=== PATIENT | male | born 1975 | race African-American/Black ===

== ENCOUNTER 2020-01-31 18:18 | Emergency (ER) | payer OTHER ==
[~2020-01-31] VITALS: Ht 172.7 cm; Wt 78.6 kg
[2020-01-31 19:19] LABS: CALCIUM 9.8 mg/dL (8.5-10.1); CARBON DIOXIDE 28.2 mmol/L (21-32); CREATININE SERUM 1.4 mg/dL (0.7-1.3); POTASSIUM SERUM 4.2 mmol/L (3.5-5.1)
[2020-01-31 19:23] LABS: ALBUMIN 4.6 g/dL (3.4-5.0); BILIRUBIN TOTAL 1.13 mg/dL (0.20-1.00)
[2020-01-31 19:27] LABS: TOTAL PROTEIN, SERUM 8.6 g/dL (6.4-8.2)
[2020-01-31 19:28] LABS: PLATELET COUNT 239 x10^3mcL (130-400); RED CELL DISTRIBUTION WIDTH 13.3 % (11.5-14.5)
[2020-01-31 20:10] LABS: MONOCYTE 16 % (0-7); SEGMENTED NEUTROPHILS 71 % (37-75)
[2020-01-31 20:11] LABS: BAND NEUTROPHIL 1 % (0-10); BASOPHIL 0 % (0-2); rbc morphology (normal/abnorm) NORMAL (NORMAL)
[2020-01-31 20:14] LABS: UA SPECIFIC GRAVITY >=1.030 (1.005-1.035); microscopic required? YES; urine erythrocyte TRACE (NEGATIVE)
[2020-01-31 20:29] LABS: AMPHETAMINE QUAL UR NONE DETECTED (See below)
[2020-01-31 23:11] VITALS: BP 167/97
== END 2020-01-31 23:11 | disposition home or self-care (01) ==
LOC: ED 18:18
PROVIDERS: Emergency Medicine
DX: I16.0 Hypertensive urgency (principal); F10.10 Alcohol abuse, uncomplicated; F14.10 Cocaine abuse, uncomplicated; F12.10 Cannabis abuse, uncomplicated; M54.9 Dorsalgia, unspecified
CPT/HCPCS: J0360; J1885; J2060; J3490; J7030